=== PATIENT | female | born 1980 | race Hispanic/Latino ===

== ENCOUNTER 2016-12-11 22:06 | Emergency (ER) | payer MEDICAID ==
[2016-12-11 22:06] VITALS: BMI 29.2
[2016-12-11 22:45] VITALS: BP 114/65; PULSE 86; RESP 16; TEMP 99.1; O2SAT 98
--- NOTE | 2016-12-11 22:56 | ED PDOC ---
Lower Extremity Pain/Injury Time Seen by Provider: 12/11/16 22:54 Chief Complaint (Nursing): Lower Extremity Problem/Injury Chief Complaint (Provider): right ankle pain History Per: Patient Additional Complaint(s): Patient states she injured her right ankle s/p twisting ankle while walking earlier today and tripping on the curb. She applied an jim wrap and throughout the day pain and swelling worsened. No meds taken for pain relief. She rates current pain as 6/10, better with rest, worse with movement. No associated numbness or tingling to affected area. No associated right foot pain. Past Medical History Reviewed: Historical Data, Nursing Documentation, Vital Signs Vital Signs: Last Vital Signs Temp 99.1 F 12/11/16 22:40 Pulse 86 12/11/16 22:40 Resp 16 12/11/16 22:40 BP 114/65 12/11/16 22:40 Pulse Ox 98 12/11/16 22:40 - Medical History PMH: Asthma, Hypothyroidism - Surgical History Other surgeries: LEEP procedure - Family History Family History: States: No Known Family Hx - Living Arrangements Living Arrangements: With Family - Social History Current smoker - smoking cessation education provided: Yes Alcohol: None Drugs: Denies - Home Medications Home Medications: Ambulatory Orders Medication Instructions Recorded Acetaminophen/Codeine Phosph 1 tab PO Q6 #10 tab 12/07/14 [Acetaminophen and Codeine Phosphate #3 300 mg] Albuterol 0.083% [Albuterol 0.083% 2.5 mg IH Q6H PRN #25 neb 05/02/15 Inhal Sybil (2.5 mg/3 ml) UD] Naproxen 500 mg PO Q12 #20 tab 05/02/15 Acetaminophen [Tylenol] 325 mg PO Q6 #20 tablet 08/15/15 Ibuprofen [Motrin] 600 mg PO Q6 PRN #15 tab 12/11/16 - Allergies Allergies/Adverse Reactions: Allergies Allergy/AdvReac Type Severity Reaction Status Date / Time No Known Allergies Allergy Verified 12/07/14 18:33 Wells Criteria for PE - Wells Criteria for Pulmonary Embolism Clinical Signs and Symptoms of DVT: No P.E is #1 Diagnosis, or Equally Likely: No Heart Rate >100: No Immobilization at least 3 days;Surgery previous 4 weeks: No Previous, objectively diagnosed PE or DVT: No Hemoptysis: No Malignancy w/treatment within 6 months, or palliative: No Total Score: 0 Review of Systems ROS Statement: Except As Marked, All Systems Reviewed And Found Negative Musculoskeletal: Positive for: Other (right ankle injury) Physical Exam - Reviewed Nursing Documentation Reviewed: Yes Vital Signs Reviewed: Yes - Physical Exam Appears: Positive for: Well, Non-toxic, No Acute Distress Skin: Negative for: Rash Eye Exam: Positive for: Normal appearance Extremity: Positive for: Other (swelling and tenderness right lateral malleolus , decreased rom, non-tender right foot, palpable DP pulse, normal distal sensation) Neurologic/Psych: Positive for: Alert, Oriented - Laboratory Results Urine POC: Negative - ECG O2 Sat by Pulse Oximetry: 98 Pulse Ox Interpretation: Normal - Other Rad Right ankle x-ray X-Ray: Interpreted by Me, Viewed By Me X-Ray Interpretation: no fx, no dis Medical Decision Making Medical Decision Makin36 year old with right ankle pain Plan: PO tylenol X-ray right ankle X-ray negative for fx or dis. Crutches given. See procedure note. Rx motrin given for pain. Patient was referred to podiatry clinic for follow up. Procedures - Splinting Location: right ankle Pre-Made Type: aircast Pre-Proc Neuro Vasc Exam: normal Post-Proc Neuro Vasc Exam: normal Disposition - Clinical Impression Clinical Impression: Ankle sprain - Patient ED Disposition Is Patient to be Admitted: No Counseled Patient/Family Regarding: Studies Performed, Diagnosis, Need For Followup, Rx Given, Smoking Cessation - Disposition Referrals: Podiatry Clinic [Outside] Disposition: Routine/Home Disposition Time: 23:22 Condition: STABLE Additional Instructions: Ice, rest and elevate affected area. Take rx meds as directed as needed for pain. Follow up in 2-3 days with podiatry clinic. Prescriptions: Ibuprofen [Motrin] 600 mg PO Q6 PRN #15 tab PRN Reason: Pain, Moderate (4-7) Instructions: Ankle Sprain (ED), Ankle Stirrup Splint (ED), Crutch Instructions (ED) Forms: [employer] (Irish), [facility] ED School/Work Excuse
--- NOTE | 2016-12-12 11:22 | RAD ---
PROCEDURE: Right Ankle Radiographs. HISTORY: trauma COMPARISON: None FINDINGS: BONES: Normal. No fracture. JOINTS: Normal. No osteoarthritis. Ankle mortise maintained. Talar dome intact SOFT TISSUES: Lateral soft tissue swelling without distal fibular abnormality. OTHER FINDINGS: None. IMPRESSION: Soft tissue swelling without acute articular or osseous abnormality. Concordant results with the preliminary interpretation rendered by the emergency department physician procedure.
== END 2016-12-11 23:39 | disposition home or self-care (01) ==
LOC: H.ER 22:06
DX: S93.401A Sprain of unspecified ligament of right ankle, initial encounter (principal); W01.0XXA Fall on same level from slipping, tripping and stumbling without subsequent striking against object, initial encounter; Y93.01 Activity, walking, marching and hiking; Y92.480 Sidewalk as the place of occurrence of the external cause; Y99.9 Unspecified external cause status; F17.200 Nicotine dependence, unspecified, uncomplicated

== ENCOUNTER 2016-12-27 18:42 | Emergency (ER) | payer MEDICAID ==
--- NOTE | 2016-12-27 19:14 | ED PDOC ---
HPI: Allergic Reaction Time Seen by Provider: 12/27/16 19:06 Chief Complaint (Provider): Allergic reaction History Per: Patient History/Exam Limitations: no limitations Onset/Duration Of Symptoms: Days (x 2) Current Symptoms Are (Timing): Still Present Possible Cause: Unknown Associated Symptoms: Swelling, Itching Home/EMS Treatment: Benadryl Additional Complaint(s): Janelle is a 36 y/o who presents to the ED complaining of allergic reaction. She first noticed left-sided lip and facial swelling yesterday with associated itchiness. Last night she also experienced right hand pain, with hives and numbness. Today the swelling worsened, and impeded her ability to open her eyes. Patient took Benadryl at 10:30AM with improvement, but this afternoon symptoms returned, forcing her to leave work. This is the second time this has happened. Patient is unaware of any new detergents, foods, or allergens that could be causing the reaction. Has a dog in the home, which has fleas. PMD: Unknown Past Medical History Reviewed: Historical Data, Nursing Documentation, Vital Signs - Medical History PMH: Asthma, Hypothyroidism Denies: Chronic Kidney Disease - Family History Family History: States: Unknown Family Hx - Home Medications Home Medications: Ambulatory Orders Medication Instructions Recorded Acetaminophen/Codeine Phosph 1 tab PO Q6 #10 tab 12/07/14 [Acetaminophen and Codeine Phosphate #3 300 mg] Albuterol 0.083% [Albuterol 0.083% 2.5 mg IH Q6H PRN #25 neb 05/02/15 Inhal Sybil (2.5 mg/3 ml) UD] Naproxen 500 mg PO Q12 #20 tab 05/02/15 Acetaminophen [Tylenol] 325 mg PO Q6 #20 tablet 08/15/15 Ibuprofen [Motrin] 600 mg PO Q6 PRN #15 tab 12/11/16 predniSONE [predniSONE Tab] 20 mg PO DAILY #12 tab 12/27/16 - Allergies Allergies/Adverse Reactions: Allergies Allergy/AdvReac Type Severity Reaction Status Date / Time No Known Allergies Allergy Verified 12/27/16 19:12 Review of Systems ROS Statement: Except As Marked, All Systems Reviewed And Found Negative Skin: Positive for: Other (Left-sided lip and facial swelling) Physical Exam - Reviewed Nursing Documentation Reviewed: Yes Vital Signs Reviewed: Yes - Physical Exam Appears: Positive for: Well, Non-toxic, No Acute Distress Head Exam: Positive for: ATRAUMATIC, NORMAL INSPECTION, NORMOCEPHALIC Skin: Positive for: Normal Color, Warm, Dry Eye Exam: Positive for: EOMI, Normal appearance, PERRL ENT: Positive for: Normal ENT Inspection, Other (Lip swelling) Neck: Positive for: Normal Cardiovascular/Chest: Positive for: Regular Rate, Rhythm. Negative for: Murmur Respiratory: Positive for: Normal Breath Sounds. Negative for: Respiratory Distress Neurologic/Psych: Positive for: Alert, Oriented. Negative for: Motor/Sensory Deficits Disposition - Clinical Impression Clinical Impression: Allergic reaction - Patient ED Disposition Is Patient to be Admitted: No Counseled Patient/Family Regarding: Diagnosis, Need For Followup, Rx Given - Disposition Disposition: Routine/Home Disposition Time: 19:17 Condition: STABLE Prescriptions: predniSONE [predniSONE Tab] 20 mg PO DAILY #12 tab Instructions: Urticaria (ED) Forms: [facility] ED School/Work Excuse Medical Decision Making Medical Decision Making: Time: 19:15 Clinical Impression: Urticaria Initial Plan: --Will prescribe prednisone --Must follow up outpatient for allergy testing Upon provider evaluation patient is medically stable, and requires no further treatment in the ED at this time. Patient will be discharged home with Rx for prednisone. Counseling was provided and all questions were answered regarding diagnosis and need for follow up with PMD for allergy testing. There is agreement to discharge plan. Return if symptoms persist or worsen. Scribe Attestation: Documented by Janeth Santiago, acting as a scribe for Lena Hidalgo PA-C Provider Scribe Attestation: All medical record entries made by the Scribe were at my direction and personally dictated by me. I have reviewed the chart and agree that the record accurately reflects my personal performance of the history, physical exam, medical decision making, and the department course for this patient. I have also personally directed, reviewed, and agree with the discharge instructions and disposition.
[2016-12-27 19:15] VITALS: BMI 27.3
[2016-12-27 19:16] VITALS: BP 121/63; RESP 18; TEMP 98; O2SAT 100
[2016-12-27 19:18] VITALS: PULSE 90
== END 2016-12-27 19:17 | disposition home or self-care (01) ==
LOC: H.ER 18:42
DX: L50.9 Urticaria, unspecified (principal); E03.9 Hypothyroidism, unspecified; J45.909 Unspecified asthma, uncomplicated

== ENCOUNTER 2017-08-18 22:47 | Emergency (ER) | payer MEDICAID ==
[2017-08-18 22:47] VITALS: BMI 27.3
[2017-08-18 22:53] VITALS: O2SAT 100
--- NOTE | 2017-08-18 23:45 | ED PDOC ---
HPI: Abdomen Time Seen by Provider: 08/18/17 22:56 Chief Complaint (Nursing): Abdominal Pain Chief Complaint (Provider): Abdominal Pain History Per: Patient History/Exam Limitations: no limitations Onset/Duration Of Symptoms: Days (2 days ) Current Symptoms Are (Timing): Still Present Location Of Pain/Discomfort: LLQ Additional Complaint(s): 37 yo female, with a history of asthma, hypothyroidism, and cervical cancer, presents to the ED complaining of diffuse abdominal pain, onset of 2 days ago. Patient initially thought she was constipated so she took a laxative and Pepto-Bismol, but still feels boated and uncomfortable. She reports of nausea, but no vomiting, diarrhea, fever, vaginal discharge or any urinary symptoms. Of note, she was taking Depo-Provera, but stopped taking the medication for 6 months, and last month was her first resumption of her menstrual cycle. Past Medical History Reviewed: Historical Data, Nursing Documentation, Vital Signs Vital Signs: Last Vital Signs Temp 98.6 F 08/19/17 04:50 Pulse 89 08/19/17 04:50 Resp 18 08/19/17 04:50 BP 128/82 08/19/17 04:50 Pulse Ox 100 08/19/17 04:50 - Medical History PMH: Anxiety, Asthma, Hypothyroidism Denies: Chronic Kidney Disease Other PMH: cervical cancer - Surgical History Surgical History: No Surg Hx - Family History Family History: States: Unknown Family Hx - Social History Ex-Smoker (has not smoked in the last 12 months): No Alcohol: None Drugs: Denies - Home Medications Home Medications: Ambulatory Orders Medication Instructions Recorded Acetaminophen/Codeine Phosph 1 tab PO Q6 #10 tab 12/07/14 [Acetaminophen and Codeine Phosphate #3 300 mg] Albuterol 0.083% [Albuterol 0.083% 2.5 mg IH Q6H PRN #25 neb 05/02/15 Inhal Sybil (2.5 mg/3 ml) UD] Naproxen 500 mg PO Q12 #20 tab 05/02/15 Acetaminophen [Tylenol] 325 mg PO Q6 #20 tablet 08/15/15 Ibuprofen [Motrin] 600 mg PO Q6 PRN #15 tab 12/11/16 predniSONE [predniSONE Tab] 20 mg PO DAILY #12 tab 12/27/16 Doxycycline Hyclate 100 mg PO BID #28 capsule 08/19/17 - Allergies Allergies/Adverse Reactions: Allergies Allergy/AdvReac Type Severity Reaction Status Date / Time No Known Allergies Allergy Verified 08/18/17 22:49 Review of Systems ROS Statement: Except As Marked, All Systems Reviewed And Found Negative Constitutional: Negative for: Fever Gastrointestinal: Positive for: Abdominal Pain (generalized) Physical Exam - Reviewed Nursing Documentation Reviewed: Yes Vital Signs Reviewed: Yes - Physical Exam Appears: Positive for: Well, Non-toxic, No Acute Distress Head Exam: Positive for: ATRAUMATIC, NORMAL INSPECTION, NORMOCEPHALIC Skin: Positive for: Normal Color, Warm, DRY Eye Exam: Positive for: EOMI, Normal appearance, PERRL ENT: Positive for: Normal ENT Inspection Neck: Positive for: Normal, Painless ROM Cardiovascular/Chest: Positive for: Regular Rate, Rhythm. Negative for: Murmur Respiratory: Positive for: Normal Breath Sounds. Negative for: Respiratory Distress Gastrointestinal/Abdominal: Positive for: Soft, Tenderness (LLQ ) Back: Positive for: Normal Inspection Extremity: Positive for: Normal ROM. Negative for: Pedal Edema, Deformity Neurologic/Psych: Positive for: Alert, Oriented (x3). Negative for: Motor/ Sensory Deficits - Laboratory Results Result Diagrams: 08/18/17 23:58 08/18/17 23:58 - ECG O2 Sat by Pulse Oximetry: 100 (RA) Pulse Ox Interpretation: Normal Medical Decision Making Medical Decision Making: Time: --23:12 Impression: --37 yo female with LLQ abdominal pain Plan: --Labs --Lipase --ED Urine Dip --Urine Preg --Toradol 30mg IV --Heplock Insertion --Urinalysis --Transvaginal US - Reassess --03:25 EXAM: CT Abdomen and Pelvis With Intravenous Contrast CLINICAL HISTORY: 37 years old, female; Pain; Abdominal pain; Generalized; Patient HX: See phys doc; Additional info: Lower abd pain/ leukocytosis TECHNIQUE: Axial computed tomography images of the abdomen and pelvis with intravenous contrast. All CT scans at this facility use one or more dose reduction techniques, viz.: automated exposure control; ma/kV adjustment per patient size (including targeted exams where dose is matched to indication; i.e. head); or iterative reconstruction technique. Coronal and sagittal reformatted images were created and reviewed. CONTRAST: 95 mL of OMNI 300 administered intravenously. COMPARISON: CT - ABD PELVIS PO IV CONTRAST 2015-05-02 17:16 FINDINGS: Lung bases: Minimal atelectasis. Mediastinum: Small hiatal hernia. ABDOMEN: Liver: Unremarkable. No mass. Gallbladder and bile ducts: No calcified stones. No ductal dilation. Pancreas: No ductal dilation. No mass. Spleen: No splenomegaly. Adrenals: No mass. Kidneys and ureters: No mass. No hydronephrosis. Stomach and bowel: No definite mural thickening. No obstruction. Appendix: Normal caliber. No inflammation. PELVIS: Bladder: Unremarkable. Reproductive: 4.2 x 0.8 cm peripherally enhancing tubular structure within left adnexal region. 4.3 x 1.7 cm peripherally enhancing tubular structure within right adnexal region. 2.3 x 2.8 x 2.7 cm hypodense lesion within RIGHT ovary ABDOMEN and PELVIS: Intraperitoneal space: Trace free fluid within pelvis. No free air. Bones/joints: Chronic L5 pars defects. No acute fracture. Soft tissues: Tiny umbilical hernia containing fat. Vasculature: Unremarkable. No aneurysm. Lymph nodes: No pathologically enlarged lymph nodes. IMPRESSION: 1. Tubular enhancing structures within adnexal regions concerning for pelvic inflammatory disease/TOA. 2. Probable right ovarian cyst. Intraovarian abscess not entirely excluded. 3. Incidental/non-acute findings are described above. 03:42 patient reports improvement of symptoms. patient is stable for discharge. diagnosis: salpingitis pat will follow up with [facility]. given initial doses of Rocephin and doxycycline prior to discharge. Scribe Attestation: Documented by Jonel Cain acting as a scribe for Sixto Carlson MD. Provider Attestation: All medical record entries made by the Scribe were at my direction and personally dictated by me. I have reviewed the chart and agree that the record accurately reflects my personal performance of the history, physical exam, medical decision making, and the department course for this patient. I have also personally directed, reviewed, and agree with the discharge instructions and disposition. Disposition - Clinical Impression Clinical Impression: Salpingitis - Disposition Referrals: Marcus Gross MD [Primary Care Provider] - Disposition: Routine/Home Disposition Time: 01:00 Condition: STABLE Prescriptions: Doxycycline Hyclate 100 mg PO BID #28 capsule Instructions: Pelvic Inflammatory Disease Forms: [employer] (Romanian), [facility] ED School/Work Excuse
[2017-08-19 00:03] LABS: BASO # 0.1 K/uL (0.0-0.2); BASO % 0.5 % (0.0-2.0); EOS # 0.3 K/uL (0.0-0.7); EOS % 1.6 % (0.0-4.0); HEMOGLOBIN 14.3 g/dL (12.0-16.0); LYMPH # 2.9 K/uL (1.0-4.3); LYMPH % 16.7 % (20.0-40.0); MEAN CELL VOLUME 101.3 fl (81.0-99.0); MEAN CORPUSCULAR HGB CONC 33.6 g/dL (33.0-37.0); MEAN PLATELET VOLUME 7.9 fl (7.2-11.7); MONO # 1.1 K/uL (0.0-0.8); MONO % 6.1 % (0.0-10.0); NEUT # 13.1 K/uL (1.8-7.0); NEUT % 75.1 % (50.0-75.0); NRBC % 0.1 % (0.0-0.0); RBC 4.21 Mil/uL (3.80-5.20); RED CELL DISTRIBUTION WIDTH 12.7 % (11.5-14.5); WHITE BLOOD COUNT 17.5 K/uL (4.8-10.8)
[2017-08-19 00:05] LABS: SQUAMOUS EPITHIAL 58 /hpf (0-5); URINE BACTERIA RARE (<OCC); URINE BILIRUBIN NEGATIVE (NEGATIVE); URINE BLOOD MODERATE (NEGATIVE); URINE CLARITY TURBID (Clear); URINE COLOR YELLOW (YELLOW); URINE GLUCOSE (UA) NEG (Normal); URINE LEUKOCYTE ESTERASE SMALL Leu/uL (Negative); URINE PROTEIN 30 mg/dL (NEGATIVE); URINE UROBILINOGEN 0.2-1.0 mg/dL (0.2-1.0)
[2017-08-19 00:11] LABS: ALB/GLOB RATIO 1.1 (1.0-2.1); ALBUMIN 4.1 g/dL (3.5-5.0); ALT/SGPT 33 U/L (9-52); AST/SGOT 23 U/L (14-36); BLOOD UREA NITROGEN 10 mg/dl (7-17); CALCIUM 8.8 mg/dL (8.4-10.2); GFR AFRICAN-AMERICAN > 60; GFR NON-AFRICAN AMERICAN > 60; LIPASE 111 U/L (23-300)
[2017-08-19] MEDS ORDERED: Sodium Chloride 0.9% 100 ML ONE (01:06)
[2017-08-19] MEDS ORDERED: Iohexol 300 100 ML IJ ONE (01:06)
--- NOTE | 2017-08-19 03:25 | CT ---
EXAM: CT Abdomen and Pelvis With Intravenous Contrast CLINICAL HISTORY: 37 years old, female; Pain; Abdominal pain; Generalized; Patient HX: See phys doc; Additional info: Lower abd pain/ leukocytosis TECHNIQUE: Axial computed tomography images of the abdomen and pelvis with intravenous contrast. All CT scans at this facility use one or more dose reduction techniques, viz.: automated exposure control; ma/kV adjustment per patient size (including targeted exams where dose is matched to indication; i.e. head); or iterative reconstruction technique. Coronal and sagittal reformatted images were created and reviewed. CONTRAST: 95 mL of OMNI 300 administered intravenously. COMPARISON: CT - ABD PELVIS PO IV CONTRAST 2015-05-02 17:16 FINDINGS: Lung bases: Minimal atelectasis. Mediastinum: Small hiatal hernia. ABDOMEN: Liver: Unremarkable. No mass. Gallbladder and bile ducts: No calcified stones. No ductal dilation. Pancreas: No ductal dilation. No mass. Spleen: No splenomegaly. Adrenals: No mass. Kidneys and ureters: No mass. No hydronephrosis. Stomach and bowel: No definite mural thickening. No obstruction. Appendix: Normal caliber. No inflammation. PELVIS: Bladder: Unremarkable. Reproductive: 4.2 x 0.8 cm peripherally enhancing tubular structure within left adnexal region. 4.3 x 1.7 cm peripherally enhancing tubular structure within right adnexal region. 2.3 x 2.8 x 2.7 cm hypodense lesion within RIGHT ovary. ABDOMEN and PELVIS: Intraperitoneal space: Trace free fluid within pelvis. No free air. Bones/joints: Chronic L5 pars defects. No acute fracture. Soft tissues: Tiny umbilical hernia containing fat. Vasculature: Unremarkable. No aneurysm. Lymph nodes: No pathologically enlarged lymph nodes. IMPRESSION: 1. Tubular enhancing structures within adnexal regions concerning for pelvic inflammatory disease/TOA. 2. Probable right ovarian cyst. Intraovarian abscess not entirely excluded. 3. Incidental/non-acute findings are described above.
[2017-08-19] MEDS ORDERED: cefTRIAXone (Rocephin) 1 gm Inj ONE (03:55)
[2017-08-19 05:19] VITALS: BP 128/82; PULSE 89; RESP 18; TEMP 98.6
--- NOTE | 2017-08-19 11:58 | US ---
HISTORY: abd pain hx ov cyst COMPARISON: None available. TECHNIQUE: Transabdominal and transvaginal FINDINGS: UTERUS: Measures 5.7 x 3.4 x 4.6 cm. No uterine mass. ENDOMETRIUM: Measures 2 mm in single wall thickness. Small amount of endometrial fluid noted. Mm in diameter. CERVIX: No cervical abnormality identified. RIGHT OVARY: Measures 4.6 x 3.0 x 3.1 cm. No solid mass. Normal flow. Several physiologic cysts, 2.2 cm and 2.7 cm, respectively. LEFT OVARY: Measures 2.1 x 1.7 x 1.7 cm. No solid mass. Normal flow. FREE FLUID: No significant free fluid noted. OTHER FINDINGS: None. IMPRESSION: Trace endometrial fluid. Physiologic right ovarian cysts. No additional abnormality.
== END 2017-08-19 04:50 | disposition home or self-care (01) ==
LOC: H.ER 22:47
DX: N70.91 Salpingitis, unspecified (principal); J45.909 Unspecified asthma, uncomplicated; Z85.41 Personal history of malignant neoplasm of cervix uteri; E03.9 Hypothyroidism, unspecified; Z87.891 Personal history of nicotine dependence
CPT/HCPCS: 74177; 76830; 80053; 81003; 81025; 83690; 85025; 96374; 99284; J0696; J1885; J2270; Q9967

== ENCOUNTER 2017-10-01 20:45 | Emergency (ER) | payer MEDICAID ==
[2017-10-01 20:45] VITALS: BMI 27.3
--- NOTE | 2017-10-01 21:26 | ED PDOC ---
HPI: General Adult Time Seen by Provider: 10/01/17 21:09 Chief Complaint (Nursing): Fever Chief Complaint (Provider): Fever History Per: Patient History/Exam Limitations: no limitations Onset/Duration Of Symptoms: Days (yesterday) Additional Complaint(s): Pt. with fever, cough, congestion, body aches. Also mild headache left that started gradually and is not the worst in her life. No neck pain. No numbness , tingles, weakness, dizziness. Feels pressure on left pelvic area when urinating. Took motrin and started doxy that she found. She had PID and ovarian abscess on the left 1 month ago and given doxy to take which she lost and never finished. Pt. with no vaginal bleeding or discharge. Past Medical History Reviewed: Nursing Documentation, Vital Signs Vital Signs: Last Vital Signs Temp 99.6 F 10/01/17 23:17 Pulse 94 H 10/01/17 23:17 Resp 13 10/01/17 23:17 BP 91/57 L 10/01/17 23:17 Pulse Ox 97 10/01/17 23:50 - Medical History PMH: Anxiety, Asthma, Hypothyroidism Denies: Chronic Kidney Disease Other PMH: PID and ovarian abscess - Surgical History Surgical History: Denies: Appendectomy - Family History Family History: States: Unknown Family Hx - Home Medications Home Medications: Ambulatory Orders Medication Instructions Recorded Acetaminophen/Codeine Phosph 1 tab PO Q6 #10 tab 12/07/14 [Acetaminophen and Codeine Phosphate #3 300 mg] Albuterol 0.083% [Albuterol 0.083% 2.5 mg IH Q6H PRN #25 neb 05/02/15 Inhal Sybil (2.5 mg/3 ml) UD] Naproxen 500 mg PO Q12 #20 tab 05/02/15 Acetaminophen [Tylenol] 325 mg PO Q6 #20 tablet 08/15/15 Ibuprofen [Motrin] 600 mg PO Q6 PRN #15 tab 12/11/16 predniSONE [predniSONE Tab] 20 mg PO DAILY #12 tab 12/27/16 Doxycycline Hyclate 100 mg PO BID #28 capsule 08/19/17 Ibuprofen [Motrin] 600 mg PO TID 7 Days tab 10/01/17 - Allergies Allergies/Adverse Reactions: Allergies Allergy/AdvReac Type Severity Reaction Status Date / Time No Known Allergies Allergy Verified 10/01/17 20:50 Review of Systems ROS Statement: Except As Marked, All Systems Reviewed And Found Negative Constitutional: Positive for: Fever ENT: Positive for: Nose Congestion Cardiovascular: Negative for: Chest Pain, Edema, Light Headedness Respiratory: Positive for: Cough. Negative for: Shortness of Breath, Hemoptysis , Sputum Gastrointestinal: Negative for: Nausea, Vomiting, Abdominal Pain, Diarrhea Genitourinary Female: Positive for: Pelvic Pain. Negative for: Dysuria, Frequency, Hematuria Musculoskeletal: Positive for: Other (body aches). Negative for: Neck Pain, Shoulder Pain, Arm Pain, Back Pain, Hand Pain Skin: Negative for: Rash, Lesions Neurological: Positive for: Headache. Negative for: Weakness, Numbness, Confusion, Altered Mental Status, Dizziness Physical Exam - Reviewed Nursing Documentation Reviewed: Yes Vital Signs Reviewed: Yes - Physical Exam Appears: Positive for: Non-toxic, No Acute Distress Head Exam: Positive for: ATRAUMATIC, NORMAL INSPECTION, NORMOCEPHALIC Skin: Positive for: Normal Color, Warm, DRY Eye Exam: Positive for: EOMI, Normal appearance, PERRL ENT: Positive for: Nasal Congestion. Negative for: Pharyngeal Erythema, Tonsillar Exudate Neck: Positive for: Normal, Painless ROM, Supple Cardiovascular/Chest: Positive for: Regular Rate, Rhythm Respiratory: Positive for: CNT, Normal Breath Sounds Gastrointestinal/Abdominal: Positive for: Soft, Tenderness (L lower pelvic mild) . Negative for: Distended, Guarding Back: Positive for: Normal Inspection. Negative for: L CVA Tenderness, R CVA Tenderness Extremity: Positive for: Normal ROM. Negative for: Tenderness, Pedal Edema Neurologic/Psych: Positive for: Alert, clinical geneticist II-XII, Oriented. Negative for: Motor/Sensory Deficits - Laboratory Results Result Diagrams: 10/01/17 21:47 10/01/17 22:35 Interpretation Of Abn Labs: no acute Urine dip results: Negative for: Leukocyte Esterase, Nitrate - ECG O2 Sat by Pulse Oximetry: 97 - CT Scan/US US Other Rad Studies (CT/US): Radiology Report Reviewed Other Rad Interpretation: no acute - Progress ED Course And Treament: 2350: Stable. AAOx3. Pain free. Tolerated PO. BP stable. Likely URI. Fu with clinic. Disposition - Clinical Impression Clinical Impression: URI (upper respiratory infection), Pelvic pain - Patient ED Disposition Is Patient to be Admitted: No Counseled Patient/Family Regarding: Studies Performed, Diagnosis, Need For Followup, Rx Given - Disposition Referrals: [facility] [Outside] - 10/02/17 Disposition: Routine/Home Disposition Time: 23:49 Condition: STABLE Additional Instructions: Return if not better in 3 days. Prescriptions: Ibuprofen [Motrin] 600 mg PO TID 7 Days tab Instructions: Chronic Pelvic Pain in Women, Viral Upper Respiratory Infection, Adult (DC) Forms: [employer] ([place]), [facility] ED School/Work Excuse
[2017-10-01] MEDS ORDERED: Sodium Chloride 0.9% 1,000 ML IV SCH (21:30)
[2017-10-01 22:22] LABS: VENOUS BLOOD GAS BASE EXCESS -1.1 mmol/L (0.0-2.0); VENOUS BLOOD GAS PCO2 33 mmHg (40-60); VENOUS BLOOD GAS PO2 48 mm/Hg (30-55); VENOUS BLOOD PH 7.44 (7.32-7.43)
[2017-10-01 22:46] LABS: SQUAMOUS EPITHIAL 33 /hpf (0-5); URINE BILIRUBIN NEGATIVE (NEGATIVE); URINE BLOOD MODERATE (NEGATIVE); URINE CLARITY CLOUDY (Clear); URINE COLOR YELLOW (YELLOW); URINE GLUCOSE (UA) NEG (Normal); URINE LEUKOCYTE ESTERASE NEG Leu/uL (Negative); URINE PROTEIN NEGATIVE (NEGATIVE); URINE UROBILINOGEN 0.2-1.0 mg/dL (0.2-1.0)
--- NOTE | 2017-10-01 22:47 | US ---
EXAM: US Pelvis, Transvaginal EXAM DATE/TIME: 10/01/2017 9:21 PM CLINICAL HISTORY: 37 years old, female; Signs and symptoms; Menstruation abnormalities; Irregular menstruation; Additional info: Vaginal bleeding TECHNIQUE: Real-time transvaginal pelvic ultrasound (complete) with image documentation. Transvaginal imaging was used for better evaluation of the endometrium and adnexa. COMPARISON: US - TRANSVAGINAL 2017-08-19 01:07 FINDINGS: The uterus is normal and measures 7 x 3 x 4 cm. The endometrium measures 6 mm. The right ovary measures 5 x 2.5 x 4 cm and the left ovary measures 2.5 by 2 x 2 centimeters. There is a 1.7 cm simple cyst in the left ovary. There are 2 adjacent cysts within the right ovary, one measuring approximately 1.5 cm in diameter and the other measuring approximately 2 cm in diameter. Prior study demonstrated 2 cysts within the right ovary as well. Color flow and doppler vascular waveforms were demonstrated to both ovaries. There is no significant free fluid. IMPRESSION: Bilateral ovarian cysts.
[2017-10-01 22:51] LABS: BASO % 0.6 % (0.0-2.0); EOS % 0.7 % (0.0-4.0); HEMOGLOBIN 15.1 g/dL (12.0-16.0); LYMPH # 1.9 K/uL (1.0-4.3); LYMPH % 26.5 % (20.0-40.0); MEAN CELL VOLUME 99.3 fl (81.0-99.0); MEAN CORPUSCULAR HEMOGLOBIN 34.6 pg (27.0-31.0); MEAN CORPUSCULAR HGB CONC 34.8 g/dL (33.0-37.0); MONO # 0.5 K/uL (0.0-0.8); MONO % 7.5 % (0.0-10.0); NEUT # 4.7 K/uL (1.8-7.0); NEUT % 64.7 % (50.0-75.0); NRBC % 0.1 % (0.0-0.0); RBC 4.37 Mil/uL (3.80-5.20); RED CELL DISTRIBUTION WIDTH 12.5 % (11.5-14.5); WHITE BLOOD COUNT 7.2 K/uL (4.8-10.8)
[2017-10-01 23:03] LABS: ALB/GLOB RATIO 1.2 (1.0-2.1); ALBUMIN 3.8 g/dL (3.5-5.0); ALT/SGPT 42 U/L (9-52); AST/SGOT 34 U/L (14-36); BLOOD UREA NITROGEN 8 mg/dl (7-17); CALCIUM 8.5 mg/dL (8.4-10.2); GFR AFRICAN-AMERICAN > 60; GFR NON-AFRICAN AMERICAN > 60
[2017-10-01 23:04] LABS: INR 1.1 (0.9-1.2); PARTIAL THROMBOPLASTIN TIME 36.5 Seconds (25.6-37.1)
[2017-10-01] MEDS ORDERED: Sodium Chloride 0.9% 1,000 ML IV STA (23:15)
[2017-10-01 23:18] VITALS: TEMP 99.6
[2017-10-01 23:53] VITALS: O2SAT 96
[2017-10-02 00:32] VITALS: BP 101/63; PULSE 77; RESP 24
== END 2017-10-02 00:50 | disposition home or self-care (01) ==
LOC: H.ER 20:45
DX: J06.9 Acute upper respiratory infection, unspecified (principal); R10.2 Pelvic and perineal pain; E03.9 Hypothyroidism, unspecified; F41.9 Anxiety disorder, unspecified; J45.909 Unspecified asthma, uncomplicated
CPT/HCPCS: 76830; 80053; 81003; 81025; 82803; 83735; 84100; 85025; 85610; 85730; 87040; 87086; 87804; 96374; 99285; J1885; J7030

== ENCOUNTER 2017-10-17 11:30 | Emergency (ER) | payer MEDICAID ==
[2017-10-17 11:44] VITALS: O2SAT 100
[2017-10-17] MEDS ORDERED: Sodium Chloride 0.9% 1,000 ML IV STA (12:24)
--- NOTE | 2017-10-17 12:52 | ED PDOC ---
HPI: General Adult Time Seen by Provider: 10/17/17 11:54 Chief Complaint (Nursing): Fever History Per: Patient Additional Complaint(s): Pt. states for the past 3 weeks she' had intermittent fever tmax of 103. Today she a fever of 102 at 0500 for which she took ibuprofen for. States on 08/2017 she was seen in this ED and dx with a possible infection in her ovary. She was prescribed doxycycline and symptoms improved. On 10/01/2017 she developed a fever and had a CT done which was normal and was subsequently discharged. Since then the fever has been intermittent. She is currently under the care of Dr. Gross for this fever and was scheduled to have blood cultures drawn today but decided to come here instead. Since 10/01/2017 she's had L sided pelvic pain which radiates into the L side of her abdomen whenever the fever returns. Also reports for the past several days she's noticed that her urine has become orange in color and she's also developed urgency and frequency. Denies N/V/D, previous abdominal surgeries, cough, congestion, SOB, headache, neck pain/ stiffness, rash, vaginal discharge. Past Medical History Reviewed: Historical Data, Nursing Documentation, Vital Signs Vital Signs: Last Vital Signs Temp 98.6 F 10/17/17 13:59 Pulse 75 10/17/17 13:59 Resp 18 10/17/17 13:59 BP 113/71 10/17/17 11:44 Pulse Ox 100 10/17/17 13:59 - Medical History PMH: Anxiety, Asthma, Hypothyroidism Denies: Chronic Kidney Disease - Surgical History Surgical History: Denies: Appendectomy - Family History Family History: States: No Known Family Hx - Home Medications Home Medications: Ambulatory Orders Medication Instructions Recorded Acetaminophen/Codeine Phosph 1 tab PO Q6 #10 tab 12/07/14 [Acetaminophen and Codeine Phosphate #3 300 mg] Albuterol 0.083% [Albuterol 0.083% 2.5 mg IH Q6H PRN #25 neb 05/02/15 Inhal Sybil (2.5 mg/3 ml) UD] Naproxen 500 mg PO Q12 #20 tab 05/02/15 Acetaminophen [Tylenol] 325 mg PO Q6 #20 tablet 08/15/15 Ibuprofen [Motrin] 600 mg PO Q6 PRN #15 tab 12/11/16 predniSONE [predniSONE Tab] 20 mg PO DAILY #12 tab 12/27/16 Doxycycline Hyclate 100 mg PO BID #28 capsule 08/19/17 Ibuprofen [Motrin] 600 mg PO TID 7 Days tab 10/01/17 - Allergies Allergies/Adverse Reactions: Allergies Allergy/AdvReac Type Severity Reaction Status Date / Time No Known Allergies Allergy Verified 10/01/17 20:50 Review of Systems ROS Statement: Except As Marked, All Systems Reviewed And Found Negative Constitutional: Positive for: Fever, Chills Gastrointestinal: Positive for: Abdominal Pain Genitourinary Female: Positive for: Pelvic Pain Physical Exam - Reviewed Nursing Documentation Reviewed: Yes Vital Signs Reviewed: Yes - Physical Exam Appears: Positive for: Well, Non-toxic, No Acute Distress Head Exam: Positive for: ATRAUMATIC, NORMAL INSPECTION, NORMOCEPHALIC Skin: Positive for: Normal Color, Warm. Negative for: Rash Eye Exam: Positive for: EOMI, Normal appearance, PERRL ENT: Positive for: Normal ENT Inspection Neck: Positive for: Normal, Painless ROM Cardiovascular/Chest: Positive for: Regular Rate, Rhythm Respiratory: Positive for: CNT, Normal Breath Sounds Gastrointestinal/Abdominal: Positive for: Normal Exam, Soft. Negative for: Tenderness (to deep palpation) Back: Positive for: Normal Inspection. Negative for: L CVA Tenderness, R CVA Tenderness Extremity: Positive for: Normal ROM Neurologic/Psych: Positive for: Alert, Oriented - Laboratory Results Result Diagrams: 10/17/17 12:20 10/17/17 12:20 Urine POC: Negative - ECG O2 Sat by Pulse Oximetry: 100 - Progress ED Course And Treament: Labs, TVUS, IV NS bolus x 1, blood culture x 2, urine culture ordered. Pt. kept NPO. Previous records indicate on 08/18/2017 CT showed possible R intraovarian abscess and was given Rocephin IM and Rx for doxycycline. Following CT on 2017 did not show this. 1450 TVUS: Bilateral simple cysts. Case d/w Dr. Gross, PMD, and informed of results and states pt. can f/u in his office. States he is aware of her elevated LFTs areald. Pt. informed of results and advised to f/u with Dr. Gross for further evaluation. Pt. states she was informed by Dr. Gross that her LFTs are elevated. No abdominal tenderness to deep palpation. Disposition - Clinical Impression Clinical Impression: Pelvic pain - Patient ED Disposition Is Patient to be Admitted: No - Disposition Referrals: [facility] [Outside] Marcus Gross MD [Family Provider] - Disposition: Routine/Home Disposition Time: 14:54 Condition: STABLE Additional Instructions: Follow up with Dr. Gross for further evaluation. Return to ED immediately if symptoms worsen. Instructions: Acute Pelvic Pain (DC), Fever, Adult (DC) Forms: [employer] (Palauan) Print Language: GUYANESE
[2017-10-17 13:09] LABS: BASO # 0.1 K/uL (0.0-0.2); BASO % 0.6 % (0.0-2.0); EOS # 0.1 K/uL (0.0-0.7); EOS % 0.9 % (0.0-4.0); HEMOGLOBIN 14.3 g/dL (12.0-16.0); LYMPH # 5.3 K/uL (1.0-4.3); LYMPH % 50.5 % (20.0-40.0); MEAN CELL VOLUME 99.4 fl (81.0-99.0); MEAN CORPUSCULAR HGB CONC 34.2 g/dL (33.0-37.0); MEAN PLATELET VOLUME 7.9 fl (7.2-11.7); MONO # 1.1 K/uL (0.0-0.8); MONO % 10.5 % (0.0-10.0); NEUT # 3.9 K/uL (1.8-7.0); NEUT % 37.5 % (50.0-75.0); NRBC % 0.2 % (0.0-0.0); RBC 4.2 Mil/uL (3.80-5.20); RED CELL DISTRIBUTION WIDTH 12.9 % (11.5-14.5); WHITE BLOOD COUNT 10.5 K/uL (4.8-10.8)
[2017-10-17 13:20] LABS: SQUAMOUS EPITHIAL 30 /hpf (0-5); URINE BILIRUBIN SMALL (NEGATIVE); URINE BLOOD SMALL (NEGATIVE); URINE CLARITY CLEAR (Clear); URINE COLOR AMBER (YELLOW); URINE GLUCOSE (UA) NEG (Normal); URINE LEUKOCYTE ESTERASE NEG Leu/uL (Negative); URINE PROTEIN 100 mg/dL (NEGATIVE)
[2017-10-17 13:25] LABS: ALB/GLOB RATIO 0.9 (1.0-2.1); ALBUMIN 3.7 g/dL (3.5-5.0); ALT/SGPT 235 U/L (9-52); AST/SGOT 164 U/L (14-36); BLOOD UREA NITROGEN 12 mg/dl (7-17); CALCIUM 8.3 mg/dL (8.4-10.2); GFR AFRICAN-AMERICAN > 60; GFR NON-AFRICAN AMERICAN > 60
[2017-10-17 14:03] VITALS: RESP 18
--- NOTE | 2017-10-17 14:49 | US ---
HISTORY: Left pelvic pain. Ovarian abscess suspected L pelvic pain; hx of poss R ovarian abscess LMP 09/22/2017. COMPARISON: 08/19/2017 and 10/01/2017 serial pelvic ultrasound studies. 08/19/2017 CT abdomen and pelvis. TECHNIQUE: Transvaginal only. Real -time technique with 2D, duplex and color Doppler FINDINGS: UTERUS: Measures 3.1 x 4.8 x 6.8 cm. Normal in size and appearance. No fibroid or other mass lesion seen. ENDOMETRIUM: Measures 3.4 mm in diameter. No ultrasound findings to suggest gestational sac, fluid, debris, mass or polyp or other pathologic process within the endometrium. CERVIX: No cervical abnormality identified. RIGHT OVARY: Measures 5.2 x 3.3 x 5.4 cm. No solid mass. Normal flow. Multiple (3) simple cysts. These range from 1.4 x 2.3 cm to 2.8 x 3.2 cm. These appear to be simple cysts without evidence of debris, vascularity or other pathologic process LEFT OVARY: Measures 2.4 x 3 x 3.0 cm. No solid mass. Normal flow. Simple cyst 2.6 x 1.9 x 2.4 cm FREE FLUID: No significant free fluid noted. OTHER FINDINGS: None. IMPRESSION: Bilateral simple cysts. No significant change compared to prior studies.
[2017-10-17 15:18] VITALS: BP 147/69; PULSE 79; TEMP 98.8
== END 2017-10-17 15:17 | disposition home or self-care (01) ==
LOC: H.ER 11:30
DX: R10.2 Pelvic and perineal pain (principal); J45.909 Unspecified asthma, uncomplicated; E03.9 Hypothyroidism, unspecified
CPT/HCPCS: 76830; 80053; 81003; 81025; 85025; 86308; 87040; 87086; 96360; 99285; J7030